=== PATIENT | male | born 1940 | race Caucasian/White ===

== ENCOUNTER 2025-04-20 12:50 | Outpatient (CLI) | payer MEDICARE, BC, OTHER, SELFPAY ==
--- NOTE | 2025-04-20 13:00 | CRLHL7_ITS ---
For Patients: As a result of the Century Cures Act, medical imaging exams and procedure reports are released immediately into your electronic medical record. You may view this report before your referring provider. If you have questions, please contact your health care provider. INDICATION: Low back pain. Fusion follow up. TECHNIQUE : Lumbar spine MRI without contrast. COMPARISON: Lumbar spine MRI from 05/13/2022. FINDINGS : Five lumbar type vertebral bodies, with the last fully formed disc space designated as L5-S1. Straightening of the typical lumbar lordosis. Mild dextroconvex lumbar curvature. No recent compression fracture or marrow replacing process. Lower cord/conus signal is normal. The conus terminates at a normal location. No intradural lesion. Bilateral renal cortical atrophy. Postsurgical changes of osseous interbody and dorsal lateral fusion at L4-5 and L5-S1. No complications. Laminectomy changes are present at L4-5 on the right and L5-S1. Discs/Endplates: L3-4 advanced disc height loss, disc desiccation, endplate remodeling and type 1 Modic change. L2-3 moderate disc height loss, disc desiccation and trace type 1 Modic change. Disc dehydration T12-L1 and L1-2. Findings at individual levels as follows: T11-12: No spinal canal or neural foraminal stenosis. T12-L1: No spinal canal or neural foraminal stenosis. L1-2: Mild disc osteophyte complex. Bilateral low-grade facet arthrosis. The spinal canal or neural foraminal stenosis. L2-3: Moderate disc osteophyte complex. Bilateral facet arthrosis. No spinal canal or neural foraminal stenosis. L3-4: Moderate disc osteophyte complex. Bilateral facet arthrosis. Mild bilateral foraminal stenosis. No spinal canal stenosis. L4-5: Postop changes. Spinal canal decompressed dorsally. No neural foraminal stenosis. L5-S1: Postop changes. Spinal canal decompressed dorsally. No neural foraminal stenosis. Imaged SI joints: Within normal limits. Imaged sacrum: Within normal limits. IMPRESSION: 1. No acute fracture or marrow replacing process. 2. L4 through S1 osseous interbody/dorsal lateral fusion and laminectomies. No complications. Spinal canal is decompressed dorsally at the operative level. 3. Multilevel lumbar spondylosis as detailed above. No high-grade spinal canal/neural foraminal stenosis or jose compression of neural structures at any imaged level. Stable since 2021 MRI. Dictated by Dawit Kincaid MD @ 04/22/2025 9:25:13 AM (Electronically Signed)
--- NOTE | 2025-04-20 13:45 | CRLHL7_ITS ---
For Patients: As a result of the Century Cures Act, medical imaging exams and procedure reports are released immediately into your electronic medical record. You may view this report before your referring provider. If you have questions, please contact your health care provider. EXAM: MRI OF THE RIGHT HIP, WITHOUT CONTRAST CLINICAL INDICATION: Chronic hip pain. PRIOR SURGERY: None. COMPARISON PLAIN FILMS: None. COMPARISON CROSS-SECTIONAL IMAGING STUDIES: None. TECHNICAL: Axial, sagittal and coronal PDFS small field of view images of the hip. Coronal and axial T1 and PDFS large field of view images of the entire pelvis. FINDINGS: RIGHT HIP: Effusion: No significant joint effusion, synovial hypertrophy or synovitis. Articular Cartilage/Surfaces: Articular surfaces appear smooth without focal chondral defect or subchondral marrow changes. Labrum: No tear on limited assessment. Joint Bodies: None seen. Proximal Femoral Morphology: Aspherical cam type impingement morphology. Acetabular Morphology: No focal or global retroversion. No significant overcoverage. AVN: Not present. LEFT HIP: On the large field of view images of the entire pelvis, the contralateral hip joint is maintained. Some shallow subchondral edema and cysts the acetabular roof from minor osteoarthritis. OSSEOUS STRUCTURES: Minor osteoarthritis symphysis pubis. Unremarkable sacroiliac joints. 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 Probable hemilaminectomy L5. MUSCULOTENDINOUS STRUCTURES AND BURSAE: Tendons and visualized musculotendinous units are unremarkable for age. No muscle atrophy, or edema to suggest strain changes. No trochanteric or iliopsoas bursitis. INTRAPELVIC CONTENTS: No mass, fluid collection or adenopathy. No inguinal hernia. NEUROVASCULAR STRUCTURES: No abnormality involving the visualized sacral nerve roots or proximal femoral or proximal sciatic nerves. No aneurysmal dilation of the visualized distal aorta or iliac arterial circulation. IMPRESSION: 1. Cam type impingement morphology. No significant degenerative change or labral tear. 2. See lumbar spine MRI dictation for discussion of spine findings. Dictated by Michele Vernon MD @ 04/21/2025 3:33:20 PM (Electronically Signed)
== END 2025-04-20 12:51 | disposition home or self-care (01) ==
PROVIDERS: PCP Family Medicine; Visit Provider Family Medicine
DX: M25.551 Pain in right hip (principal); M47.816 Spondylosis without myelopathy or radiculopathy, lumbar region; M54.16 Radiculopathy, lumbar region; Z98.1 Arthrodesis status
CPT/HCPCS: 72148; 73721

== ENCOUNTER 2025-05-31 10:26 | Outpatient (CLI) | payer OTHER, MEDICARE, BC, SELFPAY | END 2025-05-31 10:27 | disposition home or self-care (01) | PROVIDERS: PCP Family Medicine; Visit Provider Family Medicine | DX: M54.16 Radiculopathy, lumbar region (principal); M51.369 Other intervertebral disc degeneration, lumbar region without mention of lumbar back pain or lower extremity pain | CPT/HCPCS: 64483; J1100; Q9966 ==